=== PATIENT | male | born 1965 | race African-American/Black ===

== ENCOUNTER 2025-02-03 09:53 | Inpatient (IN) | payer OTHER, MEDICAID ==
[~2025-02-03] VITALS: Ht 172.7 cm; Wt 76.2 kg
[2025-02-03 10:06] VITALS: O2SAT 99
[2025-02-03] MEDS: SODIUM CHLORIDE 0.9% (SEPSIS BOLUS) IV ONE (12:17)
[2025-02-03 12:21] LABS: BASOPHILS % 0.3 % (0.0-2.0); EOSINOPHILS % 0.7 % (0.0-5.0); HEMATOCRIT. 43.7 % (42.0-52.0); HEMOGLOBIN. 14.6 g/dL (14.0-18.0); LYMPHOCYTES % 21.8 % (20.0-50.0); MEAN PLATELET VOLUME 9.8 fl (7.4-10.4); MONOCYTES % 7.4 % (2.0-8.0); NEUTROPHILS % 69.8 % (40.0-76.0); PLATELET 222 x1000/uL (130-400); RED BLOOD CELL COUNT 4.59 mill/uL (4.7-6.1); RED CELL DISTRIBUTION WIDTH 13.0 % (11.6-14.6)
[2025-02-03 12:47] LABS: CREATININE 1.3 mg/dL (0.6-1.3)
[2025-02-03 12:48] LABS: UREA NITROGEN BLOOD 9 mg/dL (9-23)
[2025-02-03 12:49] LABS: ASPARTATE AMINOTRANSFERASE 39 IU/L (<34)
[2025-02-03 12:50] LABS: BILIRUBIN DIRECT 0.1 mg/dL (<=3.0); BILIRUBIN TOTAL 0.6 mg/dL (0.1-1.0); PROTEIN TOTAL 7.1 g/dL (6.0-8.3)
[2025-02-03] MEDS: CEFTRIAXONE 1GM/50ML 50 ML IV ONE (12:50)
[2025-02-03] MEDS: INSULIN REGULAR (HUMULIN R) 1000UNITS/10ML VIAL IV ONE (13:45)
[2025-02-03] MEDS: VANCOMYCIN 1G PREMIX 200 ML IV ONE (14:10)
[2025-02-03] MEDS ORDERED: ONDANSETRON HCL 4MG/2ML INJ IV PRN (14:30)
[2025-02-03] MEDS ORDERED: ACETAMINOPHEN 325MG TABLET PO PRN (14:30)
[2025-02-03] MEDS ORDERED: DOCUSATE SODIUM 100MG CAPSULE PO PRN (14:30)
[2025-02-03] MEDS ORDERED: IPRATROPIUM/ALBUTEROL 0.5-3(2.5)MG/3ML NEB HHN PRN (14:30)
[2025-02-03] MEDS ORDERED: GUAIFENESIN 200MG/10ML SUGAR FREE UDC PO PRN (14:30)
[2025-02-03] MEDS ORDERED: CLONIDINE 0.1MG TABLET PO PRN (14:30)
[2025-02-03] MEDS ORDERED: MAGNESIUM/ALUMINUM HYDROXIDE/SIMETHICONE 30ML UDC PO PRN (14:30)
[2025-02-03] MEDS ORDERED: DEXTROSE 50% WATER 50ML SYRINGE IV PRN (14:30)
[2025-02-03] MEDS: INSULIN LISPRO 100 UNITS/ML SUBCUT NR (14:30)
[2025-02-03] MEDS: LISINOPRIL 40MG TABLET PO SCH (15:50)
[2025-02-03] MEDS: BLOOD SUGAR DIAGNOSTIC STRIP TEST SCH (17:00)
[2025-02-03 18:11] VITALS: BP 140/71; PULSE 74; RESP 18; TEMP 36.5292
[2025-02-03] MEDS: INSULIN LISPRO 100 UNITS/ML SUBCUT SCH (19:12)
[2025-02-03 20:00] VITALS: BP 138/66; PULSE 76; RESP 20; TEMP 36.2; O2SAT 99
[2025-02-03 21:46] LABS: CREATINE KINASE MB FRACTION 1.0 ng/mL (0.5-3.6); TROPONIN I HIGH SENSITIVITY 18 ng/L (3.0-53)
[2025-02-03] MEDS: INSULIN GLARGINE 100 UNITS/ML SUBCUT SCH (21:57)
[2025-02-03] MEDS: ATORVASTATIN CALCIUM 40MG TABLET PO SCH (21:58)
[2025-02-04] VITALS: BP 138/65; PULSE 77; RESP 20; TEMP 36.3; O2SAT 100
[2025-02-04 04:00] VITALS: BP 126/67; PULSE 76; RESP 20; TEMP 35.9; O2SAT 96
[2025-02-04 08:00] VITALS: BP 115/74; PULSE 18; RESP 18; TEMP 36.6; O2SAT 99
[2025-02-04 09:27] LABS: BASOPHILS % 0.4 % (0.0-2.0); EOSINOPHILS % 1.2 % (0.0-5.0); HEMATOCRIT. 39.8 % (42.0-52.0); HEMOGLOBIN. 13.1 g/dL (14.0-18.0); LYMPHOCYTES % 30.6 % (20.0-50.0); MEAN PLATELET VOLUME 9.4 fl (7.4-10.4); MONOCYTES % 6.8 % (2.0-8.0); NEUTROPHILS % 61.0 % (40.0-76.0); PLATELET 197 x1000/uL (130-400); RED BLOOD CELL COUNT 4.16 mill/uL (4.7-6.1); RED CELL DISTRIBUTION WIDTH 13.1 % (11.6-14.6)
[2025-02-04 09:40] LABS: TROPONIN I HIGH SENSITIVITY 15 ng/L (3.0-53)
[2025-02-04 09:41] LABS: CREATININE 1.0 mg/dL (0.6-1.3)
[2025-02-04 09:42] LABS: LDL CHOLESTEROL 168 mg/dL (5-100); TRIGLYCERIDE 98 mg/dL (0-150); UREA NITROGEN BLOOD 8 mg/dL (9-23)
[2025-02-04 09:44] LABS: T4 FREE 1.41 ng/dL (0.89-1.76)
[2025-02-04 10:20] LABS: CREATINE KINASE MB FRACTION 1.0 ng/mL (0.5-3.6)
[2025-02-04 12:00] VITALS: BP 159/78; PULSE 69; RESP 16; TEMP 36.7; O2SAT 100
[2025-02-04 16:00] VITALS: BP 131/74; PULSE 72; RESP 17; TEMP 36.6; O2SAT 98
[2025-02-04 20:00] VITALS: BP 147/77; PULSE 73; RESP 20; TEMP 36.3; O2SAT 99
[2025-02-05] VITALS: BP 127/71; PULSE 70; RESP 16; TEMP 36.8; O2SAT 100
[2025-02-05 04:00] VITALS: BP 155/81; PULSE 73; RESP 16; TEMP 36.3; O2SAT 99
[2025-02-05 08:00] VITALS: BP 163/76; PULSE 78; RESP 20; TEMP 36.3; O2SAT 100
[2025-02-05 12:00] VITALS: BP 161/92; PULSE 66; RESP 19; TEMP 36.3; O2SAT 100
[2025-02-05 16:00] VITALS: BP 176/88; PULSE 82; RESP 18; TEMP 36.4; O2SAT 99
[2025-02-05] MEDS ORDERED: DEXTROSE 50% WATER 50ML SYRINGE IV PRN (16:30)
[2025-02-05] MEDS ORDERED: BLOOD SUGAR DIAGNOSTIC STRIP TEST SCH (17:20)
[2025-02-05] MEDS: INSULIN LISPRO 100 UNITS/ML SUBCUT SCH (18:07)
[2025-02-05 20:00] VITALS: BP 151/67; PULSE 80; RESP 18; TEMP 36.9; O2SAT 99
[2025-02-05] MEDS ORDERED: INSULIN GLARGINE 100 UNITS/ML SUBCUT SCH (22:00)
[2025-02-06] VITALS: BP 148/63; PULSE 72; RESP 18; TEMP 36.3; O2SAT 99
[2025-02-06 04:00] VITALS: PULSE 82; TEMP 36.6
[2025-02-06 07:03] LABS: BASOPHILS % 0.2 % (0.0-2.0); EOSINOPHILS % 1.4 % (0.0-5.0); HEMATOCRIT. 40.6 % (42.0-52.0); HEMOGLOBIN. 13.4 g/dL (14.0-18.0); LYMPHOCYTES % 31.5 % (20.0-50.0); MEAN PLATELET VOLUME 9.8 fl (7.4-10.4); MONOCYTES % 8.7 % (2.0-8.0); NEUTROPHILS % 58.2 % (40.0-76.0); PLATELET 202 x1000/uL (130-400); RED BLOOD CELL COUNT 4.35 mill/uL (4.7-6.1); RED CELL DISTRIBUTION WIDTH 13.2 % (11.6-14.6)
[2025-02-06 07:29] LABS: CREATININE 1.1 mg/dL (0.6-1.3)
[2025-02-06 07:32] LABS: UREA NITROGEN BLOOD 9 mg/dL (9-23)
[2025-02-06 07:34] LABS: PHOSPHORUS 3.1 mg/dL (2.5-4.9)
[2025-02-06 12:00] VITALS: BP 141/81; PULSE 79; TEMP 37.1
[2025-02-06] MEDS: MAGNESIUM 2 G PREMIX 50 ML IV SCH (14:22)
[2025-02-06] MEDS ORDERED: IOHEXOL-350 100 ML BOTTLE ONE (15:02)
[2025-02-06] MEDS ORDERED: IOHEXOL-300 50 ML BOTTLE IV ONE (15:02)
[2025-02-06 16:00] VITALS: BP 125/71; PULSE 77; RESP 18; TEMP 36.1; O2SAT 100
[2025-02-06] MEDS: SODIUM HYPOCHLORITE 0.125% 473ML SOLUTION TOP SCH (17:15)
[2025-02-06 20:00] VITALS: BP 142/67; PULSE 74; RESP 18; TEMP 36.8; O2SAT 99
[2025-02-07] VITALS: BP 133/69; PULSE 80; RESP 18; TEMP 36.8; O2SAT 99
[2025-02-07] MEDS: SODIUM CHLORIDE 0.9% 1,000 ML IV SCH (00:30)
[2025-02-07 04:00] VITALS: BP 139/68; PULSE 84; RESP 18; TEMP 36.7; O2SAT 99
[2025-02-07 08:00] VITALS: BP 143/73; PULSE 67; RESP 18; TEMP 36.5; O2SAT 99
[2025-02-07 08:54] LABS: PLATELET 221 x1000/uL (130-400); RED BLOOD CELL COUNT 4.27 mill/uL (4.7-6.1); RED CELL DISTRIBUTION WIDTH 13.2 % (11.6-14.6)
[2025-02-07 09:02] LABS: INR 1.0
[2025-02-07 09:18] LABS: CREATININE 1.1 mg/dL (0.6-1.3); UREA NITROGEN BLOOD 7 mg/dL (9-23)
[2025-02-07] MEDS: ASPIRIN 81MG TABLET PO SCH (11:32)
[2025-02-07 12:00] VITALS: BP 137/70; PULSE 66; RESP 19; TEMP 36.4; O2SAT 99
[2025-02-07] MEDS ORDERED: IODIXANOL 320 MG/ML 150ML BOTTLE IV ONE (13:43)
[2025-02-07] MEDS ORDERED: HEPARIN 1000 UNITS/ML 10ML ONE (13:43)
[2025-02-07] MEDS ORDERED: MIDAZOLAM HCL 2 MG/2 ML VIAL ONE (14:13)
[2025-02-07] MEDS ORDERED: FENTANYL CITRATE/PF 50MCG/ML 2ML VIAL ONE (14:13)
[2025-02-07] MEDS ORDERED: LIDOCAINE HCL 1% 20ML VIAL ONE (14:25)
[2025-02-07] MEDS ORDERED: DIPHENHYDRAMINE 50MG/ML VIAL ONE (14:39)
[2025-02-07] MEDS ORDERED: KETOROLAC 30MG/ML VIAL ONE (15:27)
[2025-02-07] MEDS ORDERED: HYDRALAZINE 20MG/ML VIAL ONE (15:31)
[2025-02-07] MEDS ORDERED: METHYLPREDNISOLONE SOD SUCC 125MG/2ML (ACT-O-VIAL) ONE (15:42)
[2025-02-07] MEDS ORDERED: FAMOTIDINE 20MG/2ML VIAL IV ONE (15:52)
[2025-02-07] MEDS ORDERED: ACETAMINOPHEN 1000MG/100ML 100 ML IV SCH (16:00)
[2025-02-07] MEDS ORDERED: CLOPIDOGREL 75MG TABLET ONE (16:59)
[2025-02-07 20:00] VITALS: BP 118/54; PULSE 91; RESP 18; TEMP 36.7; O2SAT 98
[2025-02-07] MEDS ORDERED: DEXTROSE 50% WATER 50ML SYRINGE IV PRN (23:00)
[2025-02-08] VITALS: BP 128/81; PULSE 85; RESP 18; TEMP 36.5; O2SAT 98
[2025-02-08 04:00] VITALS: BP 117/60; PULSE 81; RESP 18; TEMP 36.3; O2SAT 97
[2025-02-08] MEDS: BLOOD SUGAR DIAGNOSTIC STRIP TEST SCH (06:29)
[2025-02-08] MEDS ORDERED: INSULIN LISPRO 100 UNITS/ML SUBCUT SCH (07:50)
[2025-02-08 08:00] VITALS: BP 104/54; PULSE 84; RESP 19; TEMP 36.6; O2SAT 98
[2025-02-08] MEDS: CLOPIDOGREL 75MG TABLET PO SCH (09:45)
[2025-02-08] MEDS: LIDOCAINE HCL 1% 20ML VIAL INFIL NR (11:29)
[2025-02-08 12:00] VITALS: BP 110/58; PULSE 86; RESP 18; TEMP 36.7; O2SAT 98
[2025-02-08 16:00] VITALS: BP 122/60; PULSE 82; RESP 18; TEMP 36.6; O2SAT 98
[2025-02-08] MEDS: ACETAMINOPHEN 325MG TABLET PO PRN (17:23)
[2025-02-08 20:00] VITALS: BP 130/57; PULSE 88; RESP 18; TEMP 36.6
[2025-02-08] MEDS: INSULIN GLARGINE 100 UNITS/ML SUBCUT SCH (21:50)
[2025-02-08] MEDS ORDERED: DEXTROSE 50% WATER 50ML SYRINGE IV PRN (22:30)
[2025-02-09] VITALS: BP 128/74; PULSE 84; RESP 18; TEMP 36.6; O2SAT 99
[2025-02-09 04:00] VITALS: BP 132/72; PULSE 84; RESP 18; TEMP 36.6; O2SAT 98
[2025-02-09] MEDS ORDERED: BLOOD SUGAR DIAGNOSTIC STRIP TEST SCH (07:20)
[2025-02-09] MEDS ORDERED: INSULIN LISPRO 100 UNITS/ML SUBCUT SCH (07:50)
[2025-02-09 08:00] VITALS: BP 131/69; PULSE 79; RESP 18; TEMP 36.6; O2SAT 99
[2025-02-09 12:00] VITALS: BP 128/86; PULSE 78; RESP 18; TEMP 36.7; O2SAT 99
[2025-02-09] MEDS ORDERED: LIP40 PO (15:14)
[2025-02-09] MEDS ORDERED: INSLIS SUBCUT (15:14)
[2025-02-09] MEDS ORDERED: LANTUSUD SUBCUT (15:14)
[2025-02-09] MEDS ORDERED: LISI40TA21 PO (15:14)
[2025-02-09] MEDS ORDERED: ASPI-1160 PO (15:14)
[2025-02-09] MEDS ORDERED: CLOP-31 PO (15:14)
[2025-02-09 16:00] VITALS: BP 124/85; PULSE 75; RESP 18; TEMP 36.7; O2SAT 99
[2025-02-09 20:00] VITALS: BP 117/52; PULSE 86; RESP 18; TEMP 36.7; O2SAT 98
[2025-02-09] MEDS: INSULIN GLARGINE 100 UNITS/ML SUBCUT SCH (22:52)
[2025-02-10] VITALS: BP 124/58; PULSE 85; RESP 18; TEMP 36.7; O2SAT 99
[2025-02-10 04:00] VITALS: BP 131/68; PULSE 78; RESP 18; TEMP 36.7; O2SAT 99
[2025-02-10 08:00] VITALS: BP 110/57; PULSE 79; RESP 18; TEMP 37.2; O2SAT 100
[2025-02-10] MEDS ORDERED: TRAM50TA3 MT (08:13)
[2025-02-10] MEDS ORDERED: EMPA10TA MT (08:15)
[2025-02-10 12:00] VITALS: BP 132/67; PULSE 81; RESP 18; TEMP 37.1; O2SAT 100
[2025-02-10 12:05] VITALS: BP 132/67; PULSE 81; RESP 18; TEMP 98.9
[2025-02-14] MEDS ORDERED: EMPA10TA PO (02:00)
[2025-02-14] MEDS ORDERED: CLOP-31 PO (02:00)
[2025-02-14] MEDS ORDERED: INSU100I28 SQ (02:00)
[2025-02-14] MEDS ORDERED: LISI40TA21 PO (02:00)
[2025-02-14] MEDS ORDERED: ASPI-1160 PO (02:00)
[2025-02-14] MEDS ORDERED: INSU100I13 SQ (02:00)
[2025-02-15] MEDS ORDERED: INSU100I28 SQ (10:41)
[2025-02-15] MEDS ORDERED: AMOX1TAB16 MT (15:56)
== END 2025-02-10 15:02 | disposition home or self-care (01) | DRG 181 ==
LOC: ER 09:53 → 6EST 13:20 → EDBEDREQ 13:39 → EDBEDREQTM 13:39 → ENRESERV 13:44
PROVIDERS: ADMIT Student in an Organized Health Care Education/Training Program; ATTEND Student in an Organized Health Care Education/Training Program
PROC: 047L3Z1 Dilation of Left Femoral Artery using Drug-Coated Balloon, Percutaneous Approach (ICD-10-PCS; 2025-02-07)
PROC: 04CL3ZZ Extirpation of Matter from Left Femoral Artery, Percutaneous Approach (ICD-10-PCS; 2025-02-07)
PROC: B410YZZ Fluoroscopy of Abdominal Aorta using Other Contrast (ICD-10-PCS; 2025-02-07)
PROC: B41GYZZ Fluoroscopy of Left Lower Extremity Arteries using Other Contrast (ICD-10-PCS; 2025-02-07)
PROC: 0JBR0ZZ Excision of Left Foot Subcutaneous Tissue and Fascia, Open Approach (ICD-10-PCS; principal; 2025-02-08)
DX: T82.858A Stenosis of other vascular prosthetic devices, implants and grafts, initial encounter (principal); E11.52 Type 2 diabetes mellitus with diabetic peripheral angiopathy with gangrene; L97.422 Non-pressure chronic ulcer of left heel and midfoot with fat layer exposed; Z59.02 Unsheltered homelessness; E11.621 Type 2 diabetes mellitus with foot ulcer; E11.319 Type 2 diabetes mellitus with unspecified diabetic retinopathy without macular edema; I10 Essential (primary) hypertension; E78.00 Pure hypercholesterolemia, unspecified; Y83.8 Other surgical procedures as the cause of abnormal reaction of the patient, or of later complication, without mention of misadventure at the time of the procedure; E66.9 Obesity, unspecified; H54.62 Unqualified visual loss, left eye, normal vision right eye; L97.522 Non-pressure chronic ulcer of other part of left foot with fat layer exposed; H53.8 Other visual disturbances; Y92.89 Other specified places as the place of occurrence of the external cause; Z79.4 Long term (current) use of insulin; Z86.73 Personal history of transient ischemic attack (TIA), and cerebral infarction without residual deficits; Z91.148 Patient's other noncompliance with medication regimen for other reason; Z79.899 Other long term (current) drug therapy; Z68.25 Body mass index [BMI] 25.0-25.9, adult
CPT/HCPCS: 36415; 37225; 73630; 75635; 75710; 80048; 80061; 80076; 82550; 82553; 82962; 83036; 83605; 83735; 84100; 84132; 84145; 84439; 84443; 84484; 85025; 85027; 85347; 86850; 86900; 87070; 87077; 87186; 93005; 93922; 93970; 96365; 97162; 97164; 97166; 99285; A4606; A6449; C1725; C1760; C1769; C1887; C1893; J0360; J0696; J1200; J1308; J1644; J1815; J1885; J2003; J2250; J2919; J3010; J3373; J3475; J3490; J7030; Q9967; C1714; J0131